=== PATIENT | male | born 1995 | race Caucasian/White ===

== ENCOUNTER 2019-06-26 07:18 | Emergency (ER) | payer BC, OTHER ==
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
[2019-06-26 08:51] VITALS: BP 132/78; TEMP 98.9; O2SAT 99
== END 2019-06-26 08:22 | disposition home or self-care (01) ==
LOC: ER 07:18
DX: S09.90XA Unspecified injury of head, initial encounter (principal); V59.88XA Occupant (driver) (passenger) of pick-up truck or van injured in other specified transport accidents, initial encounter; Z72.0 Tobacco use
CPT/HCPCS: 70450; 72125; 99283

== ENCOUNTER 2022-09-19 01:50 | Emergency (ER) | payer BC, SELFPAY ==
[2022-09-19] MEDS ORDERED: ONDANSETRON 4 MG/2 ML VIAL ONE (02:13)
[2022-09-19] MEDS ORDERED: MORPHINE 4 MG/ML SYR ONE (02:13)
[2022-09-19] MEDS ORDERED: CEFEPIME 2 GM VIAL ONE (02:13)
[2022-09-19] MEDS ORDERED: NA CHLORIDE 0.9% 100 ML IV ONE (02:13)
[2022-09-19] MEDS ORDERED: NA CHLORIDE 0.9% 1,000 ML ONE (02:14)
[2022-09-19] MEDS ORDERED: TDAP (DIPHTH,PERTUSS(ACELL),TET VAC) 0.5 ML VIAL IMVAC ONE (02:14)
[2022-09-19] MEDS ORDERED: LIDOCAINE 1% MPF 30 ML VIAL ONE (02:14)
[2022-09-19] MEDS ORDERED: KETOROLAC 30 MG/ML INJ ONE (02:50)
[2022-09-19] MEDS ORDERED: HYDROCODONE/APAP 10/325 TAB ONE (04:38)
[2022-09-19] MEDS ORDERED: CEPHALEXIN 250 MG CAP ONE (04:38)
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
[2022-09-19] MEDS ORDERED: SMZ./TMP. 800/160 MG TABLET ONE (04:39)
[2022-09-19] MEDS ORDERED: MUPIROCIN 2% OINT 22GM TUBE TOP ONE (04:39)
[2022-09-19 05:14] VITALS: TEMP 98.2
[2022-09-19 05:18] VITALS: BP 125/71; O2SAT 100
--- NOTE | 2022-09-19 23:31 | RAD REPORT ---
EXAM DESCRIPTION: RAD - Hand Left 3 View - 09/19/2022 2:43 am CLINICAL HISTORY: PAIN TECHNIQUE: Frontal, lateral and oblique views of the left hand. COMPARISON: No relevant prior studies available. FINDINGS: Bones/joints: No acute fracture. No dislocation. Soft tissues: There is an elongated density projecting along the volar aspect of the proximal 1st m etacarpal which is external to the patient on the lateral view. There is a punctate radiodensity pr ojecting subjacent to the skin surface at this level on the lateral view. IMPRESSION: There is an elongated density projecting along the volar aspect of the proximal 1st meta carpal which is external to the patient on the lateral view. It is uncertain if this is related to soft tissue dressing or possible soft tissue injury. There is a punctate radiodensity projecting isaac bjacent to the skin surface at this level on the lateral view which may represent a foreign body. N o acute fracture. Electronically signed by: Chu Aldana MD 09/19/2022 3:18 AM [employer] Due to temporary technical issues with the PACS/Fluency reporting system, reports are being signed by the in house radiologists without review as a courtesy to insure prompt reporting. The interpreting radiologist is fully responsible for the content of the report.
== END 2022-09-19 04:52 | disposition home or self-care (01) ==
LOC: ER 01:50
DX: S61.402A Unspecified open wound of left hand, initial encounter (principal); W34.00XA Accidental discharge from unspecified firearms or gun, initial encounter
CPT/HCPCS: 90471; 96361; 96365; 96375; 99284; J0692; J2001; J2405; J7030

== ENCOUNTER → 2023-12-20 | Emergency (ER) | payer OTHER, SELFPAY ==
[2023-12-20 14:07] LABS: Absolute Eosinophils 0.2 K/uL (0-0.5); Absolute Lymphocytes (CBC) 1.9 K/uL (0.7-4.9); Absolute Monocytes 0.5 K/uL (0.1-1.3); Basophils % 0.7 % (0-1.3); Hemoglobin 14.8 g/dL (13.6-17.9); Lymphocytes % 34.1 % (15.3-44.8); MCHC 34.5 g/dL (32.0-36.0); MPV 8.1 fL (7.6-11.3); Monocytes % 8.3 % (3.3-12.3); Neutrophils % 53.9 % (41.7-73.7); Nucleated Red Blood Cells % 0.2 % (0-0); Platelets 297 thou/uL (152-406); RBC Red Blood Cell Count 4.77 M/uL (4.33-5.43); Red Cell Distribution Width 13.9 % (12.1-15.2)
[2023-12-20 14:35] LABS: BUN Blood Urea Nitrogen 10 mg/dL (7-18); Bicarbonate 30 mEq/L (21-32); Glomerular Filtration Rate 103 ml/min (=/>90); Glucose Level 151 mg/dL (74-106); Sodium Level 138 mEq/L (136-145)
[2023-12-20 14:38] LABS: Troponin High Sensitivity < 3.0 pg/mL (<58.9)
--- NOTE | 2023-12-20 15:22 | RAD REPORT ---
[facility] 2:50 pm CLINICAL HISTORY: lightheaded COMPARISON: No comparisons TECHNIQUE: Portable AP view of the chest. FINDINGS: The lungs are clear. No pneumothorax or effusion. The cardiomediastinal contours are unre markable. IMPRESSION: No acute cardiopulmonary process.
--- NOTE | 2023-12-20 17:21 | ER ---
Nurse's Notes [facility] Name: Esvin Miguel Age: 28 yrs Sex: Male : 1995 Arrival Date: 12/20/2023 Time: 13:44 Bed 7 Private MD: Diagnosis: Syncope Near Presentation: 12/19 13:47 Chief complaint: Patient states: Sudden onset of dizziness at 1230. No N/V, states he ll1 is always pale. Coronavirus screen: Vaccine status: Patient reports being unvaccinated. Client denies travel out of the [place] in the last 14 days. At this time, the client does not indicate any symptoms associated with coronavirus-19. Ebola Screen: Patient denies travel to an Ebola-affected area in the 21 days before illness onset. Initial Sepsis Screen: Does the patient meet any 2 criteria? No. Patient's initial sepsis screen is negative. Does the patient have a suspected source of infection? No. Patient's initial sepsis screen is negative. Risk Assessment: Do you want to hurt yourself or someone else? Patient reports no desire to harm self or others. Onset of symptoms was December 20, 2023. 13:47 Method Of Arrival: EMS: [facility] ll1 13:47 Acuity: KIET 3 ll1 Historical: - Allergies: 13:48 No Known Allergies; ll1 - PMHx: 13:48 Diabetes - NIDDM; ll1 - PSHx: 13:48 None; ll1 - Immunization history:: Adult Immunizations up to date. - Social history:: Smoking status: Patient denies any tobacco usage or history of. Screenin:18 [facility] ED Fall Risk Assessment (Adult) History of falling in the last 3 months, ll1 including since admission No falls in past 3 months (0 pts) Confusion or Disorientation No (0 pts) Intoxicated or Sedated No (0 pts) Impaired Gait Yes (1 pt) Mobility Assist Device Used Yes (1 pt) Altered Elimination No (0 pt) Score/Fall Risk Level 0 - 2 = Low Risk Maintained a safe environment, Hourly rounding (assess needs \T\ fall precautionary measures) done. Abuse screen: Denies threats or abuse. Nutritional screening: No deficits noted. Tuberculosis screening: No symptoms or risk factors identified. Assessment: 13:40 General: Appears uncomfortable, ill, Behavior is calm, cooperative, appropriate for iw age. Pain: Denies pain. Neuro: Reports dizziness, weakness. 14:18 Reassessment: No changes from previously documented assessment. Patient and/or family ll1 updated on plan of care and expected duration. Pain level reassessed. 15:15 Reassessment: No changes from previously documented assessment. Patient and/or family ll1 updated on plan of care and expected duration. Pain level reassessed. 16:19 Reassessment: No changes from previously documented assessment. Patient and/or family ll1 updated on plan of care and expected duration. Pain level reassessed. Patient is alert, oriented x 3, equal unlabored respirations, skin warm/dry/pink. 16:35 Reassessment: Dr. Jain at . ll1 Vital Signs: 13:47 BP 128 / 77; Pulse 99; Resp 17; Temp 98; Pulse Ox 99% ; Weight 72.57 kg; Height 5 ft. 6 ll1 in. ; Pain 0/10; 15:00 BP 132 / 88; Pulse 98; Resp 15; Pulse Ox 98% ; ll1 16:04 BP 136 / 71; Pulse 83; Resp 16; Pulse Ox 96% ; ll1 16:46 BP 134 / 78; Pulse 88; Resp 16; Pulse Ox 99% on R/A; ll1 17:25 BP 140 / 74; Pulse 80; Resp 16; Pulse Ox 99% on R/A; ll1 13:47 Body Mass Index 25.82 (72.57 kg, 167.64 cm) ll1 13:47 Pain Scale: Adult ll1 ED Course: 13:40 Inserted saline lock: 20 gauge in right antecubital area, using aseptic technique. ll1 Blood collected. 13:47 Patient arrived in ED. ll1 13:47 Derrick Jain DO is Attending Physician. ms3 13:47 [facility] Bach [facility]-C [facility] sb4 13:47 Attending Physician role handed off by Derrick Jain DO sb4 13:47 Collin Hoang MD is Attending Physician. sb4 13:47 Attending Physician role handed off by Collin Hoang MD ms3 13:47 Derrick Jain DO is Attending Physician. ms3 13:48 Triage completed. ll1 13:48 Arm band placed on Patient placed in an exam room, on a stretcher. ll1 13:49 Geraldine Espinal, RN is Primary Nurse. ll1 13:49 Initial lab(s) drawn, by me, sent to lab. ll1 14:04 Provided Education on: ER procedures and process. Warm blanket given. PO fluids given. ll1 14:16 XRAY Chest (1 view) Sent. iw 14:16 Troponin HS Sent. iw 14:16 CBC with Diff Sent. iw 14:16 Basic Metabolic Panel Sent. iw 14:51 XRAY Chest (1 view) In Process Unspecified. EDMS 16:05 Patient has correct armband on for positive identification. Bed in low position. Call ll1 light in reach. Client placed on continuous cardiac and pulse oximetry monitoring. NIBP monitoring applied. 16:05 No provider procedures requiring assistance completed. ll1 17:20 Cade Valdez DO is Referral Physician. ms3 17:32 IV discontinued, intact, bleeding controlled, No redness/swelling at site. Pressure ll1 dressing applied. Administered Medications: No medications were administered Medication: 14:19 VIS not applicable for this client. 1 Outcome: 17:20 Discharge ordered by MD. ms3 17:32 Patient left the ED. ll1 17:32 Discharged to home ambulatory, ll1 17:32 Condition: stable 17:32 Discharge instructions given to patient, Instructed on discharge instructions, follow up and referral plans. Demonstrated understanding of instructions, follow-up care, Signatures: Dispatcher [employer] EDFL Lissette Fernandez RN RN iw Geraldine Espinal, RN RN ll1 Derrick Jain DO DO ms3 Anny Bach PA-C PA-C sb4
--- NOTE | 2023-12-20 17:21 | EDPHYS ---
Physician Documentation [facility] Name: Esvin Miguel Age: 28 yrs Sex: Male : 1995 Arrival Date: 12/20/2023 Time: 13:44 Bed 7 Private MD: ED Physician Derrick Jain HPI: 12/19 14:47 This 28 yrs old Male presents to ER via EMS with complaints of Dizziness. ms3 14:47 28-year-old male with past medical history of diabetes presents to the emergency ms3 department via [facility] for shortness of breath, lightheadedness. EMS notes patient's heart rate was 116 with a blood pressure of 141/96. Patient states symptoms began at 12:15 PM. Patient denies nausea, vomiting, weakness, numbness. Patient denies any alleviating or inciting factors. Patient states he feels normal now. Historical: - Allergies: 13:48 No Known Allergies; ll1 - PMHx: 13:48 Diabetes - NIDDM; ll1 - PSHx: 13:48 None; ll1 - Immunization history:: Adult Immunizations up to date. - Social history:: Smoking status: Patient denies any tobacco usage or history of. ROS: 14:47 Constitutional: Negative for fever, and chills. Neck: Negative for injury, pain, and ms3 swelling, Cardiovascular: Negative for chest pain, and palpitations. Abdomen/GI: Negative for abdominal pain, nausea, vomiting, diarrhea, and constipation, 14:47 MS/Extremity: Negative for injury and deformity, Skin: Negative for injury, rash, and discoloration, 14:47 Respiratory: Positive for shortness of breath, Exam: 14:47 Constitutional: This is a well developed, well nourished patient who is awake, alert, ms3 and in no acute distress. Head/Face: Normocephalic, atraumatic. Neck: Trachea midline, no cervical lymphadenopathy. Supple, full range of motion without nuchal rigidity, or vertebral point tenderness. No Meningismus. Chest/axilla: Normal chest wall appearance and motion. Nontender with no deformity. Cardiovascular: Regular rate and rhythm with a normal S1 and S2. No gallops, murmurs, or rubs. Normal PMI, no JVD. No pulse deficits. Respiratory: Lungs have equal breath sounds bilaterally, clear to auscultation and percussion. No rales, rhonchi or wheezes noted. No increased work of breathing, no retractions or nasal flaring. Abdomen/GI: Soft, non-tender, with normal bowel sounds. No distension or tympany. No guarding or rebound. No evidence of tenderness throughout. Skin: Warm, dry with normal turgor. Normal color with no rashes, no lesions, and no evidence of cellulitis. MS/ Extremity: Pulses equal, no cyanosis. Neurovascular intact. Full, normal range of motion. 14:54 ECG was reviewed by the Attending Physician. ms3 Vital Signs: 13:47 BP 128 / 77; Pulse 99; Resp 17; Temp 98; Pulse Ox 99% ; Weight 72.57 kg; Height 5 ft. 6 ll1 in. ; Pain 0/10; 15:00 BP 132 / 88; Pulse 98; Resp 15; Pulse Ox 98% ; ll1 16:04 BP 136 / 71; Pulse 83; Resp 16; Pulse Ox 96% ; ll1 16:46 BP 134 / 78; Pulse 88; Resp 16; Pulse Ox 99% on R/A; ll1 17:25 BP 140 / 74; Pulse 80; Resp 16; Pulse Ox 99% on R/A; ll1 13:47 Body Mass Index 25.82 (72.57 kg, 167.64 cm) ll1 13:47 Pain Scale: Adult ll1 MDM: 13:47 Patient medically screened. ms3 14:47 Differential diagnosis: cardiac arrhythmia, generalized weakness, idiopathic dizziness, ms3 near-syncope, vertigo. 17:20 Data reviewed: vital signs, nurses notes, lab test result(s), EKG, radiologic studies, ms3 and as a result, I will discharge patient. Independent interpretation of the following test(s) in the Emergency Department EKG: See my EKG interpretation above X-Ray: My interpretation is Chest x-ray image reviewed by me does not reveal pneumonia or pneumothorax. Historians other than the Patient: EMS: [facility]. Care significantly affected by the following chronic conditions: Diabetes. Counseling: I had a detailed discussion with the patient and/or guardian regarding the historical points, exam findings, and any diagnostic results supporting the discharge/admit diagnosis, lab results, radiology results, the need for outpatient follow up, to return to the emergency department if symptoms worsen or persist or if there are any questions or concerns that arise at home. Special discussion: I discussed with the patient/guardian in detail that at this point there is no indication for admission to the hospital. It is understood, however, that if the symptoms persist or worsen the patient needs to return immediately for re-evaluation. ED course: Discussed labs, imaging, EKG with patient. Patient to follow-up with primary care in 2 to 3 days. Patient understands and agrees with plan. All questions were answered. Return precautions discussed include worsening symptoms, or any other concerns. On reevaluation patient is improved, alert and orient x 4, no apparent distress, nontoxic-appearing, ambulatory emergency department. 12/19 13:51 Order name: Basic Metabolic Panel; Complete Time: 14:47 ll1 12/19 13:51 Order name: CBC with Diff; Complete Time: 14:47 ll1 12/19 13:51 Order name: Troponin HS; Complete Time: 14:47 ll1 12/19 13:51 Order name: Basic Metabolic Panel ms3 12/19 13:51 Order name: CBC with Diff ms3 12/19 13:51 Order name: Troponin HS ms3 12/19 13:51 Order name: XRAY Chest (1 view); Complete Time: 15:36 ms3 12/19 13:51 Order name: EKG; Complete Time: 13:51 ll1 12/19 13:51 Order name: Cardiac monitoring; Complete Time: 14:17 ll1 12/19 13:51 Order name: EKG - Nurse/Tech; Complete Time: 14:17 ll1 12/19 13:51 Order name: IV Saline Lock; Complete Time: 13:51 ll1 12/19 13:51 Order name: Labs collected and sent; Complete Time: 13:51 ll1 12/19 13:51 Order name: O2 Per Protocol; Complete Time: 13:51 ll1 12/19 13:51 Order name: O2 Sat Monitoring; Complete Time: 13:51 ll1 12/19 13:51 Order name: Cardiac monitoring; Complete Time: 13:58 ms3 12/19 13:51 Order name: EKG - Nurse/Tech; Complete Time: 13:58 ms3 12/19 13:51 Order name: IV Saline Lock; Complete Time: 13:58 ms3 12/19 13:51 Order name: Labs collected and sent; Complete Time: 13:58 ms3 12/19 13:51 Order name: O2 Per Protocol; Complete Time: 13:58 ms3 12/19 13:51 Order name: O2 Sat Monitoring; Complete Time: 13:58 ms3 EC:54 Rate is 85 beats/min. Rhythm is regular. QRS Rena Lara is Normal. HI interval is normal. QRS ms3 interval is normal. Clinical impression: Normal ECG. Interpreted by me. Reviewed by me. Administered Medications: No medications were administered Disposition Summary: 12/20/23 17:20 Discharge Ordered Notes: Location: Home ms3 Condition: Stable ms3 Diagnosis - Syncope Near ms3 Followup: ms3 - With: Cade Valdez DO - When: 2 - 3 days - Reason: Recheck today's complaints Discharge Instructions: - Discharge Summary Sheet ll1 - Near-Syncope ms3 Forms: - Work release form ll1 - Medication Reconciliation Form ms3 - Thank You Letter ms3 - Antibiotic Education ms3 - Prescription Opioid Use ms3 - Patient Portal Instructions ms3 - Leadership Thank You Letter ms3 Signatures: Dispatcher [employer] EDGeraldine Bruce, RN RN ll1 Derrick Jain DO DO ms3 Corrections: (The following items were deleted from the chart) 13:56 13:51 Chest Single View+[email or web address] ordered. EDMS MARIANOMS
[2023-12-20 18:08] VITALS: BP 134/78; TEMP 98; O2SAT 99
--- NOTE | 2023-12-21 14:09 | EKG ---
Test Date: 2023-12-20 Test Time: 12:55:45 International Sourcing Manager: UDAY MEASUREMENT RESULTS: Intervals: Rate: 85 W[place]: 142 QRSD: 102 QT: 350 QTc: 416 [place]: P: 64 W[place]: 142 QRS: 80 T: 30 INTERPRETIVE STATEMENTS: Normal sinus rhythm Normal ECG No previous ECG available for comparison Electronically Signed On 12-21-23 14:05:51 CDT by Red Garsia
== END ==
LOC: ER 13:44
DX: R55 Syncope and collapse (principal); R06.02 Shortness of breath; E11.9 Type 2 diabetes mellitus without complications
CPT/HCPCS: 36415; 71045; 80048; 84484; 85025; 93005; 99284